=== PATIENT | female | born 1950 | race African-American/Black ===

== ENCOUNTER 2016-08-30 13:58 | Emergency (ER) | payer OTHER ==
[2016-08-30 14:23] VITALS: BP 144/70; PULSE 80; TEMP 98.6; BMI 31.2
[2016-08-30] MEDS ORDERED: ONDANSETRON 4 MG/2 ML VIAL IVPUSH ONE (14:41)
[2016-08-30] MEDS ORDERED: FAMOTIDINE 20 MG/50 ML IVPB 50 ML IVPB ONE (14:42)
[2016-08-30] MEDS ORDERED: SODIUM CHLORIDE 0.9% 1000 ML INFUS.BAG IV ONE (14:42)
[2016-08-30 15:23] LABS: URINE APPEARANCE Clear; URINE BILIRUBIN Negative (NEGATIVE); URINE BLOOD Negative (NEGATIVE); URINE COLOR YELLOW; URINE GLUCOSE (UA) Negative (NEGATIVE); URINE KETONE Negative (NEGATIVE); URINE LEUK ESTERASE Negative (NEGATIVE); URINE NITRITE Negative (NEGATIVE); URINE PROTEIN Negative (NEGATIVE); URINE UROBILINOGEN 0.2 E.U/dl (0.2-1.0)
--- NOTE | 2016-08-30 15:51 | PDOC ---
History of Present Illness - General History Source: Patient Exam Limitations: No Limitations - History of Present Illness Initial Comments: 08/30/16 15:52 The patient is a 66 year old female, with a significant past medical history of HTN and diabetes, who presents to the emergency department with abdominal pain, nausea and vomit onset today after breakfast. She describes her abdominal pain as a sour sensation diffused throughout, ranging from mild to moderate, with radiation to her back. She denies any modifying factors. She reports that she had a croissant, grapes and coffee for breakfast this morning. She notes that she had a bowel movement that was normal in nature. She states that she had 1 episode of vomit, that was nonbloody and nonbilious. The patient denies chest pain, shortness of breath, headache and dizziness. Denies fever, chills, diarrhea and constipation. Denies dysuria, frequency, urgency and hematuria. Allergies: None Past surgical history: None reported Social history: No alcohol, tobacco or drug use reported <Sudheer Dasilva - Last Filed: 08/30/16 15:52> - General Exam Limitations: No Limitations <Homa Ramos - Last Filed: 08/30/16 17:02> - General Chief Complaint: Pain, Acute Stated Complaint: abd pain Time Seen by Provider: 08/30/16 14:24 Past History <Sudheer Dasilva - Last Filed: 08/30/16 15:52> - Past Medical History Diabetes: Yes HTN: Yes - Psycho/Social/Smoking Cessation Hx Anxiety: No Suicidal Ideation: No Smoking History: Never smoked Hx Alcohol Use: No Drug/Substance Use Hx: No Substance Use Type: None <Homa Ramos - Last Filed: 08/30/16 17:02> - Past Medical History Allergies/Adverse Reactions: Allergies Allergy/AdvReac Type Severity Reaction Status Date / Time No Known Allergies Allergy Verified 08/30/16 13:59 Home Medications: Ambulatory Orders Glimepiride [Amaryl -] 2 mg PO DAILY 08/30/16 Metformin HCl [Glucophage -] 500 mg PO BID 08/30/16 Valsartan [Diovan] 80 mg PO DAILY 08/30/16 Review of Systems - Review of Systems Able to Perform ROS?: Yes Comments:: 08/30/16 15:53 GENERAL/CONSTITUTIONAL: No fever or chills. No weakness. HEAD, EYES, EARS, NOSE AND THROAT: No change in vision. No ear pain or discharge. No sore throat. CARDIOVASCULAR: No chest pain or shortness of breath RESPIRATORY: No cough, wheezing, or hemoptysis. GASTROINTESTINAL: (+) Abdominal pain, nausea and vomiting. No diarrhea or constipation. GENITOURINARY: No dysuria, frequency, or change in urination. MUSCULOSKELETAL: No joint or muscle swelling or pain. No neck or back pain. SKIN: No rash NEUROLOGIC: No headache, vertigo, loss of consciousness, or change in strength/ sensation. ENDOCRINE: No increased thirst. No abnormal weight change HEMATOLOGIC/LYMPHATIC: No anemia, easy bleeding, or history of blood clots. ALLERGIC/IMMUNOLOGIC: No hives or skin allergy. <Sudheer Dasilva - Last Filed: 08/30/16 15:52> *Physical Exam - Vital Signs Last Vital Signs Temp Pulse Resp BP Pulse Ox 98.6 F 80 18 144/70 100 08/30/16 13:59 08/30/16 13:59 08/30/16 13:59 08/30/16 13:59 08/30/16 13:59 - Physical Exam Comments: 08/30/16 15:53 GENERAL: Awake, alert, and fully oriented, in no acute distress HEAD: No signs of trauma, normocephalic, atraumatic EYES: PERRLA, EOMI, sclera anicteric, conjunctiva clear ENT: Auricles normal inspection, hearing grossly normal, nares patent, oropharynx clear without exudates. Moist mucosa NECK: Normal ROM, supple, no lymphadenopathy, JVD, or masses LUNGS: No distress, speaks full sentences, clear to auscultation bilaterally HEART: Regular rate and rhythm, normal S1 and S2, no murmurs, rubs or gallops, peripheral pulses normal and equal bilaterally. ABDOMEN: (+) Mild right upper quadrant and epigastic tenderness. Right CVA tenderness. Soft, normoactive bowel sounds. No guarding, no rebound. No masses EXTREMITIES: Normal inspection, Normal range of motion, no edema. No clubbing or cyanosis. NEUROLOGICAL: Cranial nerves II through XII grossly intact. Normal speech, normal gait, no focal sensorimotor deficits SKIN: Warm, Dry, normal turgor, no rashes or lesions noted. <Sudheer Dasilva - Last Filed: 08/30/16 15:52> - Vital Signs Last Vital Signs Temp Pulse Resp BP Pulse Ox 98.6 F 80 18 144/70 100 08/30/16 13:59 08/30/16 13:59 08/30/16 13:59 08/30/16 13:59 08/30/16 13:59 <Homa Ramos - Last Filed: 08/30/16 17:02> ED Treatment Course - ADDITIONAL ORDERS Additional order review: Laboratory Results 08/30/16 15:09 Urine Color Yellow Urine Appearance Clear Urine pH 5.0 Ur Specific [place] 1.015 Urine Protein Negative Urine Glucose (UA) Negative Urine Ketones Negative Urine Blood Negative Urine Nitrite Negative Urine Bilirubin Negative Urine Urobilinogen 0.2 e.u/dl Ur Leukocyte Esterase Negative <Sudheer Dasilva - Last Filed: 08/30/16 15:52> - LABORATORY CBC & Chemistry Diagram: 08/30/16 16:00 08/30/16 16:00 - ADDITIONAL ORDERS Additional order review: Laboratory Results 08/30/16 15:09 Urine Color Yellow Urine Appearance Clear Urine pH 5.0 Ur Specific [place] 1.015 Urine Protein Negative Urine Glucose (UA) Negative Urine Ketones Negative Urine Blood Negative Urine Nitrite Negative Urine Bilirubin Negative Urine Urobilinogen 0.2 e.u/dl Ur Leukocyte Esterase Negative - RADIOLOGY Radiology Studies Ordered: Category Date Time Status ABDOMEN US -LIMITED [US] Stat Ultrasound 08/30/16 14:42 Ordered 08/30/16 17:02 <Homa Ramos - Last Filed: 08/30/16 17:02> Medical Decision Making - Medical Decision Making 08/30/16 15:45 66 yo F with h//o HTN and dM here with c/o epigastric right sided abd pain and flank pain. started today right after eating. was generalized pain. not sharp. felt like sour stomach. did have nausea and emesis x one. no f/c no change to urine no change to BM. no h/o similar pain. no sick contacts. no mod factors. on exam awake alert lungs clear heart RRR no mr/g. abd mild RUQ and epigastric ttp, no rebound no guarding. right cva tenderness. skin warm and dry. differential: cholelithiasis, pancreatitis, gastritis uti pyelo plan labs lipase us gb. ua antiemetics reassess. 08/30/16 17:01 pt feels better. tolerating PO. labs unremarkable. us with fatty liver. dc home given copies of labs and us. <Homa Ramos - Last Filed: 08/30/16 17:02> *DC/Admit/Observation/Transfer - Attestations Scribe Attestion: 08/30/16 15:53 Documentation prepared by Sudheer Dasilva, acting as director biomedical engineering for Homa Ramos MD <Sudheer Dasilva - Last Filed: 08/30/16 15:52> - Discharge Dispostion Admit: No <Homa Ramos - Last Filed: 08/30/16 17:02> Diagnosis at time of Disposition: Gastritis - Discharge Dispostion Disposition: HOME Condition at time of disposition: Improved - Patient Instructions Printed Discharge Instructions: Gastritis Additional Instructions: follow up with your regular doctor. return for high fever, persistant pain, vomiting or any concerns. take pepcid 20 mg daily to help wtih acid in the stomach. - Post Discharge Activity Work/School Note: Back to Work
[2016-08-30] MEDS ORDERED: ONDANSETRON *ODT* 4 MG TABLET ONE (16:09)
[2016-08-30] MEDS ORDERED: ONDANSETRON *ODT* 4 MG TABLET SL ONE (16:10)
[2016-08-30] MEDS ORDERED: FAMOTIDINE 20 MG TABLET ONE (16:21)
[2016-08-30] MEDS ORDERED: MAG HYDROX/AL HYDROX/SIMETH 30 ML UNIT-DOSE CUP ONE (16:21)
[2016-08-30] MEDS ORDERED: MAG HYDROX/AL HYDROX/SIMETH 30 ML UNIT-DOSE CUP PO ONE (16:28)
[2016-08-30] MEDS ORDERED: FAMOTIDINE 20 MG TABLET PO ONE (16:29)
[2016-08-30 16:39] LABS: BASOPHIL 1.1 % (0-2.0); EOSINOPHIL 0.1 % (0-4.5); MCH 26.4 pg (25.7-33.7); MCHC 32.6 g/dl (32.0-36.0); MEAN CELL VOLUME 81.1 fl (80-96); NEUTROPHILS 88.9 % (42.8-82.8); PLATELET COUNT 129 K/MM3 (134-434); RDW 14.3 % (11.6-15.6)
[2016-08-30 16:40] LABS: ALBUMIN 4.4 g/dl (3.5-5.0); ALK PHOS 63 U/L (32-92); ANION GAP 11 (8-16); BILIRUBIN,TOTAL 1.2 mg/dl (0.2-1.0); CALCIUM 9.4 mg/dl (8.4-10.2); CO2 22 mmol/L (22-28); CREATININE 0.9 mg/dl (0.6-1.3); GLUCOSE,RANDOM 212 mg/dl (74-106); SGOT/AST 35 U/L (10-42); SGPT/ALT 23 U/L (10-40); TOT PROT 7.6 g/dl (6.4-8.3)
[2016-08-30 16:41] LABS: COCKROFT - GAULT NT
[2016-08-30] MEDS ORDERED: ACETAMINOPHEN 325 MG TABLET (FP) PO ONE (16:45)
[2016-08-30] MEDS ORDERED: ACETAMINOPHEN 325 MG TABLET (FP) ONE (16:46)
== END 2016-08-30 17:15 | disposition home or self-care (01) ==
LOC: FER 13:58
DX: K52.9 Noninfective gastroenteritis and colitis, unspecified (principal); I10 Essential (primary) hypertension; E11.9 Type 2 diabetes mellitus without complications
CPT/HCPCS: 36415; 76705-TC; 80053; 81003; 83690; 85025; 99282-25